=== PATIENT | female | born 1950 | race Caucasian/White ===

== ENCOUNTER → 2017-09-23 | Outpatient (CLI) | payer MEDICARE ==
[~2017-09-23] MED LIST: ACET-2041 PO; ASCO10006 PO; ASPI-875 PO; ASPI-983 PO; BARIUM SUSPENSION 2.1% (VANILLA SILQ) 450 ML PO ONE; CALC-52 PO; CALC1TAB97 PO; CATHETER FLUSH 10 ML SYR IV PRN; CHOL100048 PO; CHOL200012 PO; CHOL200018 PO; HYDR1TAB8 OP; IOHEXOL 350 MG/ML 100 ML (OMNIPAQUE 350) VIAL IV ONE; LORA10TA76 PO; LOSA1TAB20 PO; LOSA1TAB69 PO; LOSA50TA36 PO; LRT10T PO; MELO7.5T46 PO; MULT-35 PO; MULT-878 PO; MULT-974 PO; NF-PILO5T PO; NF-TYLARTH PO; NS 100 ML (IVPB) BAG IV ONE; OMEP20CA12 PO; SALS750T17 PO; SIMV40TA4 PO; SLF500T PO; SULF500T7 PO; VITAMIN C 1000MG PO
--- NOTE | 2017-09-23 13:27 | Diagnostic Imaging Report ---
PROCEDURE: CT abdomen and pelvis with and without contrast. TECHNIQUE: Precontrast acquisitions were acquired through the abdomen and pelvis. Multiple contiguous axial images were obtained through the abdomen and pelvis after the administration of intravenous contrast. INDICATION: Left lower quadrant pain. 100 mL of Omnipaque 350 is administered intravenously. COMPARISON: 09/28/2008 study is reviewed. FINDINGS: The lung bases appear from unremarkable. There is a moderate-sized hiatal hernia. There is circumferential wall thickening and a mild the luminal structures seen within the mid descending colon. There is no significant pericolonic stranding. This area was involved with inflammation on study from 2007 and this could represent scarring. Element of active inflammation or developmental of an early neoplasm is not excluded. The sigmoid colon demonstrates numerous diverticula with no evidence of diverticulitis. No significant free fluid or fluid collection in the abdomen or pelvis. The small bowel loops have normal caliber with no significant thickening seen. The appendix appears normal. The uterus and adnexa appear grossly unremarkable. The liver, the gallbladder, the spleen, the adrenals, and the pancreas appear unremarkable. The kidneys have symmetric contrast enhancement and excretion. No hydronephrosis. There urinary bladder appears unremarkable. The SI joints and the hip joints demonstrate [id number] degenerative changes. IMPRESSION: 1. There is colonic wall thickening involving the mid descending colon with a mild luminal structure seen. Could be sequela of current or old Crohn's colitis. Superimposed neoplasm is not entirely excluded. Colonoscopy correlation is suggested. 2. Diverticulosis. No evidence of diverticulitis. 3. Moderate hiatal hernia. Dr. Luis Alfredo Escobar is called and informed of the findings in the descending colon at time of dictation. Dictated by: Dictated on workstation # [id number]
== END ==
LOC: RAD 11:16
PROVIDERS: ATTEND Internal Medicine
DX: K63.9 Disease of intestine, unspecified (principal); K57.30 Diverticulosis of large intestine without perforation or abscess without bleeding; K44.9 Diaphragmatic hernia without obstruction or gangrene
CPT/HCPCS: 74178

== ENCOUNTER → 2017-12-10 | Outpatient (CLI) | payer MEDICARE, OTHER ==
[~2017-12-10] MED LIST changes: -BARIUM SUSPENSION 2.1% (VANILLA SILQ) 450 ML PO ONE; -CATHETER FLUSH 10 ML SYR IV PRN; -IOHEXOL 350 MG/ML 100 ML (OMNIPAQUE 350) VIAL IV ONE; -LOSA1TAB69 PO; -NS 100 ML (IVPB) BAG IV ONE
--- NOTE | 2017-12-10 11:00 | Diagnostic Imaging Report ---
INDICATION: Routine screening. Comparison is made with prior study from 10/15/2016 and 09/08/2013. The current study was also evaluated with a Computer Aided Detection (CAD) system. Scattered fibroglandular densities are identified bilaterally. The parenchymal pattern is stable. No dominant mass or malignant appearing microcalcifications are seen. The axillae are unremarkable. IMPRESSION: BI-RADS category one No mammographic features suspicious for malignancy are identified. ACR BI-RADS Category 1: Negative. Result letter will be mailed to the patient. Note: At least 10% of breast cancer is not imaged by mammography. Dictated by: Dictated on workstation # [id number]
== END ==
LOC: RAD 09:35
PROVIDERS: ATTEND Internal Medicine
DX: Z12.31 Encounter for screening mammogram for malignant neoplasm of breast (principal)
CPT/HCPCS: 77067

== ENCOUNTER 2018-03-07 07:49 | Day surgery (SDC) | payer MEDICARE, OTHER ==
[~2018-03-07] VITALS: Ht 165.1 cm; Wt 84.1 kg
--- NOTE | 2018-03-07 06:03 | HISTORY AND PHYSICAL ---
DATE OF SERVICE: COLONOSCOPY HISTORY AND PHYSICAL HISTORY OF PRESENT ILLNESS: The patient is a 67-year-old white female seen in the office on 03/05, reporting a 2-week history of constipation. She has had associated abdominal bloating and diminishment in appetite. She has been using MiraLax regularly, but has had magnesium citrate. She will initially have a small amount of hard stool and then softer stool. She has had several episodes of bright red blood per rectum associated with some straining at the stool. She has had no reported rectal or perineal pain and has attributed this to hemorrhoids. She denies night sweats, chills or fever. At times, she has had the sensation of difficulty urinating, but has had no increased frequency and this has only been associated with her constipation. PAST MEDICAL HISTORY: Significant for previous patchy areas of ulceration, most notably in her descending colon for which there has been some associated narrowing on past colonoscopies without obstruction. Biopsies suggest the possibility of Crohn's colitis. She has been on low dose sulfasalazine, which she has for quite a few years without baseline problems with diarrhea. She has a past history of erosive esophagitis controlled on omeprazole and hypertension for which she takes losartan 100 mg daily. Her last colonoscopy was in 2016. She had no evidence for neoplasia at that time. PHYSICAL EXAMINATION: GENERAL: An uncomfortable appearing white female in no acute distress. VITAL SIGNS: Her weight was down 4.2 pounds from 4 months ago. Initial blood pressure 166/80, at the end of the interview 145/76, heart rate 80 and regular. HEENT: Unremarkable. She has a Mallampati class 3 oropharyngeal configuration. Sclerae nonicteric. No erythema is noted in regards to the oral cavity. CHEST: Clear. CARDIOVASCULAR: Reveals a regular rate and rhythm with a questionable soft I-II/ systolic ejection murmur heard best at the second right intercostal space. No evidence of pulsus, parvus or tardus is noted. No S3 or S4 is noted. ABDOMEN: Mildly distended, relatively soft with left lower quadrant abdominal pain to palpation. No definitive evidence for mass is noted. Bowel sounds are positive in all four quadrants. No evidence for borborygmi is noted at the time of auscultation. No bruits are noted. EXTREMITIES: Reveal no cyanosis, clubbing or edema. ASSESSMENT AND PLAN: The patient was set up for diagnostic colonoscopy due to constipation with abdominal distention and intermittent bright red blood per rectum. My immediate concern is stricture formation at the previous site of the descending colonic ulcer for which if present balloon dilatation can be attempted. For metabolic causes of constipation, we did send off a CBC and a CMP as well as a sed rate. If no abnormalities are noted on colonoscopy, we will need to proceed with a CT scan of the abdomen and pelvis to evaluate further pathology. Prep instructions with Suprep kit were given and questions were answered. Job ID: [id number] DocumentID: [id number] Dictated Date: 03/05/2018 11:54:15 Pediatric Audiologist Date: 03/05/2018 12:17:41 Dictated By: JUAN RAMON MACDONALD MD
[~2018-03-07 07:49] MED LIST changes: +CHOL200059 PO; +METO-370 PO; +OMEP40CA36 PO
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
[2018-03-07] MEDS ORDERED: FLUMAZENIL (ROMAZICON) 0.1 MG/ML 5 ML VIAL INJ PRN (08:00)
[2018-03-07] MEDS ORDERED: LIDOCAINE JELLY 2% (XYLOCAINE) 5 ML TUBE MM PRN (08:00)
[2018-03-07] MEDS ORDERED: NALOXONE 0.4 MG/ML 1 ML (NARCAN) VIAL IVP PRN (08:00)
[2018-03-07] MEDS ORDERED: D5 LR IV SOLUTION 1,000 ML IV STA (08:00)
[2018-03-07] MEDS ORDERED: D5 LR IV SOLUTION 1,000 ML IV ONE (08:12)
[2018-03-07 08:34] VITALS: BP 121/60
[2018-03-07] MEDS ORDERED: MIDAZOLAM 2 MG/2 ML (VERSED) VIAL ONE ×2 (08:53→09:59)
[2018-03-07] MEDS ORDERED: fentaNYL INJECTION 100 MCG/2 ML AMP ONE (08:53)
[2018-03-07] MEDS ORDERED: LIDOCAINE JELLY 2% (XYLOCAINE) 5 ML TUBE ONE (09:36)
[2018-03-07] MEDS: fentaNYL INJECTION 100 MCG/2 ML AMP IVP PRN ×2 (09:40→10:00)
--- NOTE | 2018-03-07 09:40 | Pre-Op Note & Conscious Sedat ---
Pre-Operative Progress Note H&P Reviewed The H&P was reviewed, patient examined and no changes noted. Date H&P Reviewed: Mar 07, 2018 Time H&P Reviewed: 09:35 Conscious Sedation Pre-Proced ASA Class: 2 Airway Mallampati Classification: ([place] appropriate class) I. II. III, IV Lungs Heart ASA score ASA 1: a normal healthy patient ASA 2: a patient with a mild systemic disease (mid diabetes, controlled hypertension, obesity ASA 3: a patient with a severe systemic disease that limits activity (angina , COPD, prior Myocardial infarction) ASA 4: a patient with an incapacitating disease that is a constant threat to life (CHF, renal failure) ASA 5: a moribund patient not expected to survive 24 hrs. (ruptured aneurysm) ASA 6: a declared brain patient whose organs are being harvested. For emergent operations, add the letter E after the classification Grade 2 Sedation Plan: Analgesia, Amnesia, Plan communicated to team members, Discussed options with patient/fam, Discussed risks with patient/fam Note The patient is an appropriate candidate to undergo the planned procedure, sedation, and anesthesia. The patient immediately re-assessed prior to indication. JUAN RAMON MACDONALD MD Mar 07, 2018 09:40
[2018-03-07] MEDS: MIDAZOLAM 2 MG/2 ML (VERSED) VIAL IVP PRN ×2 (09:50→10:05)
[2018-03-07 10:35] VITALS: BP 130/67
[2018-03-07 11:00] VITALS: BP 142/70
[2018-03-07 13:45] VITALS: BP 142/70
--- NOTE | 2018-03-07 16:11 | OPERATIVE REPORT ---
DATE OF SERVICE: 03/07/2018 COLONOSCOPY SUMMARY INDICATION FOR THE PROCEDURE: Left lower quadrant abdominal pain, constipation, weight loss. The patient was placed in the left lateral decubitus position. Prior to doing a colonoscopy, digital rectal evaluation was performed. Anal sphincter tone was normal and the perianal reflexes intact. No abnormalities, no additional inspection of anal canal or distal rectal vault. The colonoscope was then inserted into the rectum under direct visualization, advanced to the cecum. The cecum was identified by identification of the ileocecal valve and cecal strap. Photographic documentation was obtained. Careful inspection was made as the colonoscope was withdrawn. FINDINGS: There is no evidence of internal or external hemorrhoids and the rectum was unremarkable. Sigmoid colon was unremarkable. Present in the proximal descending colon was a linear area of ulceration with whitish base firmed biopsy benign in appearance. Present at the splenic flexure, there was minimal colonic narrowing with another inflamed fold. Several shallow 2 mm areas of erosion with minimal surrounding erythema were noted in the descending colon as well. The transverse colon revealed several similar shallow erosions with minimal surrounding erythema all in the 2 to 3 mm size range. The ascending colon was essentially unremarkable. The ileocecal valve was unremarkable, but again noted were similar focal erosions with surrounding erythema in the 2 to 3 mm range involving the distal 10 cm terminal ileum that were inspected. A biopsy was obtained and submitted for histopathology. No other abnormalities were noted in the terminal ileum. ASSESSMENT: Inflammatory change with benign focal colonic ulceration noted at the level of the proximal descending colon and at the level of splenic flexure. This has been noted on a previous colonoscopy many years ago. The patient; however, also had terminal ileitis manifesting as small punctate areas of erosion 2 to 3 mm in size with mild surrounding erythema. The no other small bowel mucosal abnormalities were noted. Focal benign appearing ulceration in the proximal descending colon with patchy areas of colitis and ileitis involving the visualized portions of terminal ileum as described above. These findings are not classic for inflammatory bowel disease. She was not having any diarrhea making typical infectious enteritis or colitis unlikely and there has been no recent antibiotic exposure. We will await on histopathology report before making further recommendation. I discussed the fact that I could not rule out partial small-bowel obstruction higher up in the small bowel. I will have the patient return for followup in 2 weeks. Job ID: [id number] DocumentID: [id number] Dictated Date: 03/07/2018 10:41:30 English Teacher Date: 03/07/2018 16:10:54 Dictated By: JUAN RAMON MACDONALD MD MTDD
== END 2018-03-07 11:15 | disposition home or self-care (01) ==
LOC: ENDO 07:49
PROVIDERS: ATTEND Internal Medicine
DX: K51.00 Ulcerative (chronic) pancolitis without complications (principal); K59.00 Constipation, unspecified; R63.4 Abnormal weight loss; I10 Essential (primary) hypertension; Z79.899 Other long term (current) drug therapy
CPT/HCPCS: 88305

== ENCOUNTER → 2018-09-26 | Outpatient (CLI) | payer MEDICARE ==
[~2018-09-26] MED LIST changes: -LOSA50TA36 PO; +LOSA50TA7 PO
--- NOTE | 2018-09-26 13:03 | Diagnostic Imaging Report ---
PATIENT HISTORY: PAIN OF RT LOWER EXTREMITY. Fall. TECHNIQUE: Frontal and lateral views of the right tibia/fibula. COMPARISON: None. FINDINGS: There is a minimally displaced fracture of the proximal right fibular diaphysis. There are mild degenerative changes in the ankle joint. No significant ankle joint effusion is seen. No significant soft tissue edema is seen about the ankle. IMPRESSION: Minimally displaced fracture of the proximal right fibula. If there is point tenderness about the ankle, consider dedicated ankle radiographs. Dictated by: Dictated on workstation # [id number]
== END ==
LOC: RAD 11:58
PROVIDERS: ATTEND Nurse Practitioner Family
DX: M79.604 Pain in right leg (principal); W19.XXXA Unspecified fall, initial encounter
CPT/HCPCS: 73590

== ENCOUNTER → 2019-03-12 | Outpatient (CLI) | payer MEDICARE ==
[~2019-03-12] MED LIST changes: +LOSA50TA63 PO; -LOSA50TA7 PO
--- NOTE | 2019-03-13 19:18 | Diagnostic Imaging Report ---
EXAMINATION: Digital mammogram bilateral screening with 3D tomosynthesis and computer-aided detection (CAD) system. INDICATION: Screening. COMPARISON: This study was compared to the prior exams of 12/10/2017, 10/15/2016, and 09/08/2015. At this time, there are no current complaints. FINDINGS: There are scattered fibroglandular densities in both breasts, which could obscure a lesion. When compared to the prior study, there has been no significant change. There is no primary or secondary sign of malignancy noted. The 3D tomographic views also fail to show any sign of malignancy. IMPRESSION: There is no evidence of malignancy. ACR BI-RADS Category 1: Negative. Result letter will be mailed to the patient. Note: At least 10% of breast cancer is not imaged by mammography. Dictated on workstation # [id number]
== END ==
LOC: RAD 10:47
PROVIDERS: ATTEND Internal Medicine
DX: Z12.31 Encounter for screening mammogram for malignant neoplasm of breast (principal)
CPT/HCPCS: 77067

== ENCOUNTER → 2019-04-23 | Outpatient (CLI) | payer MEDICARE ==
--- NOTE | 2019-04-23 17:37 | Diagnostic Imaging Report ---
EXAMINATION: Right hip at 8:39 p.m. INDICATION: Right hip pain. FINDINGS: AP and lateral views were obtained. There is no fracture, dislocation or acute bony abnormality evident. There is mild degenerative disease of the hip joint. The degenerative changes have not progressed since the prior abdomen exam of 10/22/2008. The soft tissues are unremarkable. IMPRESSION: 1. There is no evidence for an acute bony abnormality. 2. If clinical concern regarding an underlying abnormality persists and further imaging is desired, then MRI would be recommended. Dictated by: Dictated on workstation # [id number]
== END ==
LOC: RAD 14:53
PROVIDERS: ATTEND Internal Medicine
DX: M25.551 Pain in right hip (principal)
CPT/HCPCS: 73502

== ENCOUNTER → 2020-05-24 | Outpatient (CLI) | payer MEDICARE ==
[~2020-05-24] MED LIST changes: -METO-370 PO; +METO50TA7 PO; +OMEP20CA18 PO; +OMEP40CA27 PO; -OMEP40CA36 PO; +SIMV40TA25 PO; -SULF500T7 PO
--- NOTE | 2020-05-24 13:11 | Diagnostic Imaging Report ---
INDICATION: Back pain TECHNIQUE: AP, Lateral and Spot imaging of the lumbar spine CORRELATION STUDY: None FINDINGS: Very mild leftward curvature of the superior lumbar spine. Trace anterolisthesis of L4 on L5, L5 on S1. Some straightening of the lumbar lordosis as well. Lumbar vertebral body heights maintained. The various degrees of disc space narrowing is most pronounced at the T12-L1 and L1-L2 level. Endplate lipping and sclerosis is present. Prominent hypertrophic facet arthropathy at L5-S1 and L4-L5 level. Prominent calcification of the abdominal aorta. SI joints slight asymmetric sclerosis on the right. IMPRESSION: No radiographic evidence for acute bony abnormality of the lumbar spine. Multifocal degenerative changes including disc space narrowing, hypertrophic facet arthropathy. Asymmetric sclerosis of the right SI joint. Dictated by: Dictated on workstation # [id number]
--- NOTE | 2020-05-24 16:10 | Diagnostic Imaging Report ---
INDICATION: Routine screening. Comparison is made with prior mammogram from 03/12/2019 and 12/10/2017. 2-D and 3-D bilateral screening mammography was performed with CAD. Scattered fibroglandular densities are identified bilaterally. The parenchymal pattern is stable. No dominant mass or malignant appearing microcalcifications are seen. Axillae are unremarkable. IMPRESSION: BI-RADS Category 1 No mammographic features suspicious for malignancy are identified. ACR BI-RADS Category 1: Negative. Result letter will be mailed to the patient. Note: At least 10% of breast cancer is not imaged by mammography. Dictated by: Dictated on workstation # [id number]
--- NOTE | 2020-05-24 16:56 | Diagnostic Imaging Report ---
INDICATION: Postmenopausal screening. COMPARISON: 06/21/2009. FINDINGS: AP lumbar spine: [BMD (g/cm2): 1.066] [T-Score: -1.1] [Z-Score: -0.1] [BMD Previous: 1.088] [BMD % Change: -2.0] LT Hip Neck: [BMD (g/cm2): 0.763] [T-Score: -2.0] [Z-Score: -0.7] LT Hip Total: [BMD (g/cm2):0.845] [T-Score:-1.3] [Z-Score: -0.3] [BMD Previous: 0.874] [BMD % Change: -3.3] RT Hip Neck: [BMD (g/cm2):0.709] [T-Score:-2.4] [Z-Score:-1.1] RT Hip Total: [BMD (g/cm2):0.858] [T-score:-1.2] [Z-Score:-0.2] [BMD Previous:0.875] [BMD % Change:-1.9] *Indicates significant change from prior examination based on 95% confidence level. World Health Organization criteria for BMD interpretation classify patients as Normal (T-score at or above -1.0), Osteopenic (T-score between -1.0 and -2.5) or Osteoporotic (T-score at or below -2.5). LIMITATIONS AND MODIFICATION: None. FRACTURE RISK (FRAX SCORE): The ten year probability of (%): Major Osteoporotic Fracture: [20.9] Hip Fracture: [4.6] IMPRESSION: 1. Osteopenia (Low bone mass). 2. No significant change in bone mineral density since prior examination. 3. See below National Osteoporosis Foundation guidelines on when to potentially initiate pharmacologic therapy. Based on the National Osteoporosis Foundation Guidelines, pharmacologic treatment should be initiated in any of the following, unless clinical conditions suggest otherwise: * Any patient with prior fragility fracture of the hip or vertebrae. A spine fracture indicates 5X risk for subsequent spine fracture and 2X risk for subsequent hip fracture. * Osteoporosis (T-score <-2.5). * Postmenopausal women and men age 50 and older with low bone mass/osteopenia (T-score between -1.0 and -2.5) by DXA and 10-year major osteoporotic fracture greater than 20% or a 10-year probability of hip fracture greater than 3%. These fracture risks are supplied above in the FRAX score, if applicable. * Clinician judgement and/or patient preferences may indicate treatment for people with 10-year fracture probabilities above or below these levels. Dictated by: Dictated on workstation # [id number]
== END ==
LOC: RAD 10:26
PROVIDERS: ATTEND Nurse Practitioner Family
DX: Z12.31 Encounter for screening mammogram for malignant neoplasm of breast (principal); M54.5 Low back pain; M47.816 Spondylosis without myelopathy or radiculopathy, lumbar region; M48.061 Spinal stenosis, lumbar region without neurogenic claudication; M46.98 Unspecified inflammatory spondylopathy, sacral and sacrococcygeal region; Z78.0 Asymptomatic menopausal state
CPT/HCPCS: 72100; 77063; 77067; 77080

== ENCOUNTER → 2021-03-21 | Outpatient (CLI) | payer MEDICARE ==
[~2021-03-21] MED LIST changes: +ASCO100024 PO; -ASCO10006 PO; +ASPI-1238 PO; -ASPI-983 PO; +BARIUM SUSPENSION 2.1% (VANILLA SILQ) 450 ML PO ONE; +CATHETER FLUSH 10 ML SYR IV PRN; +HOLD METFORMIN - RECEIVED CONTRAST 20 ML VIAL IV SCH; +IOHEXOL 350 MG/ML 100 ML (OMNIPAQUE 350) VIAL IV ONE; +NS 100 ML (IVPB) BAG IV ONE
[2021-03-21 09:44] LABS: CREATININE SERUM 0.76 MG/DL (0.60-1.30); GFR ESTIMATED > 60
[2021-03-21 09:45] LABS: BUN/CREATININE RATIO 16
--- NOTE | 2021-03-21 10:37 | Diagnostic Imaging Report ---
PROCEDURE: CT abdomen and pelvis with contrast. TECHNIQUE: Multiple contiguous axial images were obtained through the abdomen and pelvis after administration of intravenous contrast. Auto Exposure Controls were utilized during the CT exam to meet ALARA standards for radiation dose reduction. All CT scans use one or more of the following dose optimizing techniques: automated exposure control, MA and/or KvP adjustment based on patient size and exam type or iterative reconstruction. INDICATION: Abdominal pain, recurrent UTI. Lung bases are clear. There is a large sliding hiatal hernia. Liver appears normal. The gallbladder is present and appears normal. The portal vein is patent. The common duct is not dilated. Pancreas appears normal. The spleen is not enlarged. Adrenals are normal. Kidneys appear normal. Small bowel is not dilated. There is diverticulosis of the colon. There is a moderate amount of fecal retention. Uterus is present and appears normal. Adnexa is unremarkable. There is no intraperitoneal free air or free fluid. Urinary bladder appears normal. IMPRESSION: Fecal stasis, colonic diverticulosis. Large hiatal hernia. Dictated by: Dictated on workstation # [id number]
== END ==
LOC: RAD 08:59
PROVIDERS: ATTEND Nurse Practitioner Family
DX: N39.0 Urinary tract infection, site not specified (principal); K44.9 Diaphragmatic hernia without obstruction or gangrene; K57.30 Diverticulosis of large intestine without perforation or abscess without bleeding; K50.919 Crohn's disease, unspecified, with unspecified complications
CPT/HCPCS: 36415; 74177; 82565; 84520

== ENCOUNTER 2021-12-08 05:41 | Outpatient (CLI) | payer MEDICARE ==
[~2021-12-08] VITALS: Ht 165.1 cm; Wt 83.1 kg
[~2021-12-08 05:41] MED LIST changes: -BARIUM SUSPENSION 2.1% (VANILLA SILQ) 450 ML PO ONE; -CATHETER FLUSH 10 ML SYR IV PRN; -HOLD METFORMIN - RECEIVED CONTRAST 20 ML VIAL IV SCH; -IOHEXOL 350 MG/ML 100 ML (OMNIPAQUE 350) VIAL IV ONE; -NS 100 ML (IVPB) BAG IV ONE; -OMEP40CA27 PO; +OMEP40CA6 PO
[2021-12-08] MEDS ORDERED: CLOB15CR3 TP (12:27)
[2021-12-08] MEDS ORDERED: TUME1CAP PO (12:27)
[2021-12-08] MEDS ORDERED: ESTR1TAB27 PO (12:27)
[2021-12-08] MEDS ORDERED: PANT40TA52 PO (12:27)
[2021-12-08] MEDS ORDERED: MESA800T9 PO (12:27)
[2021-12-08] MEDS ORDERED: ALEN35TA53 PO (12:27)
[2021-12-08] MEDS ORDERED: ASPI-999 PO (12:27)
[2021-12-08] MEDS ORDERED: CHOL500049 PO (12:27)
[2021-12-08] MEDS ORDERED: CALC-962 PO (12:27)
== END 2021-12-08 13:25 | disposition home or self-care (01) ==
LOC: PREOP 05:41
PROVIDERS: ATTEND Internal Medicine
DX: Z01.818 Encounter for other preprocedural examination (principal)

== ENCOUNTER 2021-12-22 07:59 | Day surgery (SDC) | payer MEDICARE ==
--- NOTE | 2021-12-08 07:35 | HISTORY AND PHYSICAL ---
DATE OF SERVICE: COLONOSCOPY HISTORY AND PHYSICAL HISTORY OF PRESENT ILLNESS: The patient is a 71-year-old white female with a past history of Crohn's disease, being scheduled for surveillance colonoscopy. She has also been having some left lower quadrant abdominal pain. She last underwent colonoscopy three years ago, at which time she had evidence for active Crohn's disease with small bowel as well as colonic involvement. The diarrhea has not been an issue with her Crohn's, so this has been more abdominal discomfort. She reports that this has been relatively stable with some intermittent left lower quadrant pain with no diarrhea or constipation. She did have an episode of vaginal bleeding 2 weeks ago and seen her capsule filler, who does have her setup for transvaginal ultrasound. A little over a month ago, she was diagnosed with lichen sclerosus involving the vaginal and perineal area and likely the cause of some dysuria and vaginal irritation. She has been on clobetasol ointment with lessen symptoms of dysuria and she has had no problems with frequency. She has noted no bright red blood per rectum and denies melena. PHYSICAL EXAMINATION: GENERAL: Reveals a white female appeared to be in no acute distress. VITAL SIGNS: Weight was down 1.4 pounds, 85.4 over the past month. Blood pressure 140/86. HEENT: Unremarkable. CHEST: Clear. CARDIOVASCULAR: Reveals a regular rate and rhythm without S3 or S4. Soft 1 to 2/6 systolic ejection murmur heard best at left lower sternal border without pulsus, parvus or tardus. ABDOMEN: Soft, supple. Mild left lower quadrant discomfort to palpation is present without rebound or guarding. No mass or organomegaly is noted. EXTREMITIES: Reveal no cyanosis, clubbing or edema. ASSESSMENT AND PLAN: 1. The patient is being set up for surveillance colonoscopy for followup of previous Crohn's, currently being treated with sulfasalazine 2 grams daily in divided doses. 2. Postmenopausal vaginal bleeding, the patient is set up for transvaginal ultrasound. 3. Lichen sclerosus involving the vagina and perineum, continuing clobetasol for one month. She will go off of it at that point and use p.r.n. We will see her back in 4 months with repeat lab evaluation. Prep instructions and Suprep kit were given, and questions answered. Job ID: [id number] DocumentID: [id number] Dictated Date: 12/04/2021 13:11:02 Cloth Winder Machine Operator Date: 12/04/2021 13:27:57 Dictated By: JUAN RAMON MACDONALD MD MTDD
[~2021-12-22] VITALS: Ht 165 cm; Wt 83.0 kg
[~2021-12-22 07:59] MED LIST changes: +ALEN35TA53 PO; +ASPI-999 PO; +CALC-962 PO; +CHOL500049 PO; +CLOB15CR3 TP; +ESTR1TAB27 PO; +MESA800T9 PO; +PANT40TA52 PO; +TUME1CAP PO
[2021-12-22] MEDS ORDERED: LACTATED RINGERS 1,000 ML IV ONE (08:07)
[2021-12-22] MEDS ORDERED: LACTATED RINGERS 1,000 ML IV STA (08:13)
[2021-12-22] MEDS ORDERED: LIDOCAINE JELLY 2% 6 ML SYRINGE MM PRN (08:15)
[2021-12-22 08:20] VITALS: BP 146/92
--- NOTE | 2021-12-22 08:44 | Pre-Op Note & Conscious Sedat ---
Pre-Operative Progress Note H&P Reviewed The H&P was reviewed, patient examined and no changes noted. Date H&P Reviewed: Dec 22, 2021 Time H&P Reviewed: 08:10 Conscious Sedation Pre-Proced ASA Score 2 For ASA 3 and 4: Consider anesthesia and medical clearance. Also, for patients with a history of failed moderate sedation consider anesthesia. Airway Lungs Heart ASA score ASA 1: a normal healthy patient ASA 2: a patient with a mild systemic disease (mid diabetes, controlled hypertension, obesity ASA 3: a patient with a severe systemic disease that limits activity (angina, COPD, prior Myocardial infarction) ASA 4: a patient with an incapacitating disease that is a constant threat to life (CHF, renal failure) ASA 5: a moribund patient not expected to survive 24 hrs. (ruptured aneurysm) ASA 6: a declared brain- patient whose organs are being harvested. For emergent operations, add the letter E after the classification Mallampati Classification Grade 3 Sedation Plan Analgesia, Amnesia, Plan communicated to team members, Discussed options with patient/fam, Discussed risks with patient/fam The patient is an appropriate candidate to undergo the planned procedure, sedation, and anesthesia. The patient immediately re-assessed prior to indication. JUAN RAMON MACDONALD MD Dec 22, 2021 08:44
[2021-12-22] MEDS ORDERED: MIDAZOLAM 2 MG/2 ML (VERSED) VIAL ONE (08:45)
[2021-12-22] MEDS ORDERED: PROPOFOL INJECTION 50 ML IV ONE (08:45)
--- NOTE | 2021-12-22 09:22 | Anesthesia-General Post-Op ---
MAC Patient Condition Mental Status/LOC: Same as Preop Cardiovascular: Satisfactory Nausea/Vomiting: Absent Respiratory: Satisfactory Pain: Controlled Complications: Absent Post Op Complications Complications None Follow Up Care/Instructions Patient Instructions None needed. Anesthesiology Discharge Order Discharge Order Patient is doing well, no complaints, stable vital signs, no apparent adverse anesthesia problems. No complications reported per nursing. AMRITA PRUITT CRNA Dec 22, 2021 09:21
[2021-12-22 09:24] VITALS: BP 89/54
[2021-12-22 09:58] VITALS: BP 141/70
[2021-12-22 10:17] LABS: CLARITY,URINE CLEAR; COLOR,URINE YELLOW; GLUCOSE, URINE (UA) NEGATIVE (NEGATIVE); KETONES,URINE 2+ (NEGATIVE); LEUKOCYTE ESTERASE ,URINE NEGATIVE (NEGATIVE); NITRITE,URINE NEGATIVE (NEGATIVE); PROTEIN,URINE NEGATIVE (NEGATIVE)
[2021-12-22 10:33] LABS: BACTERIA,URINE LARGE /HPF; BILIRUBIN,URINE 1+ (NEGATIVE); SQUAMOUS EPITHELIAL CELL,UR 0-2 /HPF
--- NOTE | 2021-12-22 13:24 | OPERATIVE REPORT ---
DATE OF SERVICE: COLONOSCOPY SUMMARY INDICATION FOR THE PROCEDURE: History of Crohn's disease, left lower quadrant abdominal pain. DESCRIPTION OF PROCEDURE: The patient was placed in the left lateral decubitus position. Prior to undergoing colonoscopy, digital rectal evaluation was performed. Anal sphincter tone was normal and the perianal reflexes intact. There was a very small distal rectal ring, but does not cause any significant narrowing. No other abnormalities were noted on digital inspection of anal canal or distal rectal vault. Colonoscope was then inserted into the rectum and under direct visualization advanced to the cecum. The cecum was identified by identification of ileocecal valve and cecal strap. Photographic documentation was obtained. Quality of prep was good. Distal several centimeters of terminal ileum were inspected and unremarkable. FINDINGS: There was no evidence for internal or external hemorrhoids and the rectum was unremarkable with no inflammatory change being noted. A moderate number of small to medium size diverticulum were noted throughout the sigmoid colon with no evidence for neoplasia or inflammatory change. No ulceration noted. Present in the mid descending colon were findings compatible with scarring from a known previous site of Crohn's disease that many years ago required dilation, I was able to easily get the scope pass without significant blockage and just proximal to this was an area of mild erythema with a mass like effect. There was no evidence for ulceration. Biopsies were obtained. It was not sclerotic typical of invasive malignancy. There is some mild friability on biopsy. Photograph was obtained. The remainder of the descending colon, splenic flexure, transverse colon, hepatic flexure, ascending colon, cecum and distal terminal ileum were unremarkable with no evidence for active Crohn's disease or neoplasia. ASSESSMENT: Atypical proximal descending colonic mucosal abnormality with mass like effect. Biopsies submitted malignancy favored to be much less likely. Most likely inflammatory in nature. The patient does have moderate diverticular disease involving the sigmoid and descending colon. Just distal to this area in the descending colon, there was some area of mild narrowing where the patient had previous ulceration, likely Crohn's related without evidence of ulceration. No overt changes to suggest malignancy in this area. Photograph was obtained. We will await histopathology before making further recommendations for future surveillance colonoscopy. There was no evidence for active diverticulitis or Crohn's disease, on today's colonic evaluation including distal terminal ileum. Job ID: [id number] DocumentID: [id number] Dictated Date: 12/22/2021 09:43:03 Extraction Operator Date: 12/22/2021 13:24:06 Dictated By: JUAN RAMON MACDONALD MD MTDD
--- NOTE | 2021-12-22 13:40 | OPERATIVE REPORT ---
DATE OF SERVICE: 12/22/2021 ADDENDUM The patient reports rather chronic low level symptoms of urinary urgency with pressure and mild discomfort. Sometimes, she will have some left-sided flank pain with this. She is recently diagnosed with lichen sclerosus involving the perineum and vagina, also had some uterine polyps that have returned benign. She underwent cystoscopy with no evidence for interstitial cystitis was noted. She does have a history of urinary tract infection. She has had no night sweats, chills or fever. On evaluation, she appears to be in mild distress post-colonoscopy due to pelvic pressure. There is some mild discomfort in the suprapubic area to palpation with no rebound or guarding. Bowel sounds are positive. During colonoscopy, she had moderate diverticular disease with some mucosal abnormality favored to be inflammatory over malignancy in the mid descending colon. Biopsies were performed, otherwise no evidence for neoplasia was identified. We did obtain UA with C and S if indicated, which is pending. We will review the results with further recommendations when they are available later today. In the meantime, the patient was advised to push fluids. Job ID: [id number] DocumentID: [id number] Dictated Date: 12/22/2021 09:54:56 Jewelry Bench Worker Date: 12/22/2021 13:39:43 Dictated By: JUAN RAMON MACDONALD MD
== END 2021-12-22 10:15 | disposition home or self-care (01) ==
LOC: ENDO 07:59
PROVIDERS: ATTEND Internal Medicine
DX: K55.9 Vascular disorder of intestine, unspecified (principal); K57.30 Diverticulosis of large intestine without perforation or abscess without bleeding; R10.32 Left lower quadrant pain; R39.15 Urgency of urination; L90.0 Lichen sclerosus et atrophicus; K50.90 Crohn's disease, unspecified, without complications; N95.0 Postmenopausal bleeding; I10 Essential (primary) hypertension; E78.5 Hyperlipidemia, unspecified; K21.9 Gastro-esophageal reflux disease without esophagitis; Z79.899 Other long term (current) drug therapy; Z79.82 Long term (current) use of aspirin; Z79.891 Long term (current) use of opiate analgesic
CPT/HCPCS: 81000; 87077; 87088; 87186

== ENCOUNTER → 2022-04-12 | Outpatient (CLI) | payer MEDICARE ==
[~2022-04-12] MED LIST changes: +CATHETER FLUSH 10 ML SYR IV PRN; +HOLD METFORMIN - RECEIVED CONTRAST 20 ML VIAL IV SCH; +IOHEXOL 350 MG/ML 100 ML (OMNIPAQUE 350) VIAL IV ONE; +NS 100 ML (IVPB) BAG IV ONE
[2022-04-12 09:26] LABS: CREATININE SERUM 0.73 MG/DL (0.60-1.30)
--- NOTE | 2022-04-12 10:32 | Diagnostic Imaging Report ---
EXAMINATION: CT angiography of the abdomen and pelvis. TECHNIQUE: After intravenous administration of contrast, thin section axial CT angiography of the abdomen and pelvis were obtained. 3D MIP reformats were provided. All CT scans use one or more of the following dose optimizing techniques: automated exposure control, MA and/or KvP adjustment based on a patient size and exam type, or iterative reconstruction. HISTORY: Crohn disease. COMPARISON: 03/21/2021 FINDINGS: The aorta is atherosclerotic but normal in caliber. Celiac and superior mesenteric arteries are normal. Renal artery origins are normal. Common iliac arteries are normal. External iliac arteries are normal. No aneurysm is seen. No vascular occlusion. Limited views of the lower thorax show a large hiatal hernia. The liver is normal without focal lesion. There is no biliary ductal dilation. Gallbladder is normal. Pancreas is normal. Spleen is normal. Adrenal glands are normal. The kidneys are normal. There is no hydronephrosis. Urinary bladder is normal. Bowel is normal in caliber without obstruction or inflammation. There is diverticulosis without diverticulitis. No free fluid or air. No abdominal or pelvic lymphadenopathy. There are no suspicious osseous lesions. IMPRESSION: 1. No evidence for active bowel inflammation. 2. No aneurysm or vascular occlusion. Dictated by: Dictated on workstation # [id number]
== END ==
LOC: RAD 10:15
PROVIDERS: ATTEND Internal Medicine Gastroenterology
DX: K50.90 Crohn's disease, unspecified, without complications (principal); K52.9 Noninfective gastroenteritis and colitis, unspecified
CPT/HCPCS: 36415; 74174; 82565; 84520

== ENCOUNTER → 2022-04-16 | Outpatient (CLI) | payer MEDICARE ==
[~2022-04-16] MED LIST changes: -CATHETER FLUSH 10 ML SYR IV PRN; -HOLD METFORMIN - RECEIVED CONTRAST 20 ML VIAL IV SCH; -IOHEXOL 350 MG/ML 100 ML (OMNIPAQUE 350) VIAL IV ONE; -NS 100 ML (IVPB) BAG IV ONE
--- NOTE | 2022-04-16 13:41 | Diagnostic Imaging Report ---
INDICATION: Routine screening. COMPARISON: 05/24/2020 and 03/12/2019. TECHNIQUE: 2D and 3D bilateral screening mammography was performed with CAD. FINDINGS: Scattered fibroglandular densities are identified bilaterally. The parenchymal pattern is stable. No mass or malignant-appearing microcalcifications are seen. The axillae are unremarkable. IMPRESSION: No mammographic features suspicious for malignancy are identified. ACR BI-RADS Category 1: Negative. Result letter will be mailed to the patient. Note: At least 10% of breast cancer is not imaged by mammography. Dictated by: Dictated on workstation # [id number]
== END ==
LOC: RAD 11:00
PROVIDERS: ATTEND Internal Medicine
DX: Z12.31 Encounter for screening mammogram for malignant neoplasm of breast (principal)
CPT/HCPCS: 77063; 77067

== ENCOUNTER → 2022-09-11 | Outpatient (CLI) | payer MEDICARE ==
--- NOTE | 2022-09-11 12:19 | Diagnostic Imaging Report ---
PROCEDURE: MRI lumbar spine. TECHNIQUE: Multiplanar, multisequence MRI of the lumbar spine was performed without contrast. INDICATION: Pain. COMPARISON: While I have no previous for direct comparison, it is correlated with CT angiogram abdomen and pelvis performed 04/12/2022; that exam includes sagittal and coronal reconstructions. FINDINGS: Lumbar statures are stable and normal. The alignment is anatomic. There is no suspicious marrow signal pathology. Some subcortical cysts associated with the endplates of L3 are chronic and degenerative. The lower thoracic cord and conus appeared normal. There is no paravertebral mass, hemorrhage, or fluid collection. T12-L1: Anterior osteophyte disc material at this level results in no stenosis. L1-L2: Anterior greater than posterior osteophyte disc material results in no stenosis. L2-L3: Very slight disc desiccation and bulge are present. No focal herniation. No resultant stenosis. L3-L4: Some thickening of the ligamenta flava and facet arthrosis with slight disc desiccation and bulge. Findings result in a very mild degree of spinal canal stenosis and minimal narrowing of the neural foramina without compression of the exiting nerves. L4-L5: There is thickening of the ligamenta flava and facet arthrosis with very slight diffuse disc bulge predominantly on the basis of the posterior element hypertrophy. There is mild spinal canal stenosis and mild biforaminal narrowing. L5-S1: There is degenerative facet arthrosis. The disc itself showed no significant displacement. Facet disease results in mild impingement upon the right lateral recess and descending right S1 nerve. IMPRESSION: 1. Mild impingement upon the descending right S1 nerve at the lateral recess level owing to facet arthrosis. 2. Normal alignment. No significant canal stenosis. No marrow edema. No acute bony pathology. Dictated by: Dictated on workstation # [id number]
== END ==
LOC: RAD 08:50
PROVIDERS: ATTEND Internal Medicine
DX: M47.816 Spondylosis without myelopathy or radiculopathy, lumbar region (principal)
CPT/HCPCS: 72148

== ENCOUNTER → 2023-07-08 | Outpatient (CLI) | payer MEDICARE ==
--- NOTE | 2023-07-08 11:57 | Diagnostic Imaging Report ---
INDICATION: Routine screening. COMPARISON: 04/16/2022 and 05/24/2020. TECHNIQUE: 2D and 3D bilateral screening mammography was performed with CAD. FINDINGS: Both breasts are heterogeneously dense, limiting the sensitivity of mammography. The parenchymal pattern is stable. No mass or malignant-appearing microcalcifications are seen. The axillae are unremarkable. IMPRESSION: No mammographic features suspicious for malignancy are identified. ACR BI-RADS Category 1: Negative. Result letter will be mailed to the patient. Note: At least 10% of breast cancer is not imaged by mammography. Dictated by: Dictated on workstation # [id number]
== END ==
LOC: RAD 10:54
PROVIDERS: ATTEND Internal Medicine
DX: Z12.31 Encounter for screening mammogram for malignant neoplasm of breast (principal)
CPT/HCPCS: 77063; 77067